=== PATIENT | male | born 1985 | race Caucasian/White ===

== ENCOUNTER → 2016-11-10 | Outpatient (CLI) | payer BC, OTHER ==
--- NOTE | 2016-11-10 19:53 | DIAGNOSTIC IMAGING REPORT ---
RIGHT SHOULDER 4 VIEWS CLINICAL HISTORY: Right shoulder pain. FINDINGS: 4 views of the right shoulder are obtained. No prior studies are available for comparison at the time of dictation. The skeletal structures are well mineralized. No fracture or dislocation is seen. The glenohumeral and acromioclavicular joints are preserved. The overlying soft tissues are within normal limits. The imaged right upper lobe lung parenchyma appears clear. IMPRESSION: No acute bony abnormality is identified in the right shoulder. Electronically signed by: Joseluis Tapia M.D. 11/10/2016 7:52 PM Dictated Date/Time: 11/10/2016 7:51 PM
== END | disposition home or self-care (01) ==
LOC: C.RAD 16:55
PROVIDERS: ATTEND Family Medicine
DX: M25.511 Pain in right shoulder (principal)